=== PATIENT | female | born 1955 | race Caucasian/White ===

== ENCOUNTER 2017-10-27 11:06 | Emergency (ER) | payer BC ==
[2017-10-27 11:18] VITALS: BP 156/73; PULSE 77; RESP 18; TEMP 96.7
--- NOTE | 2017-10-27 12:25 | ED ---
General Adult HPI - General Chief complaint: Needlestick/Exposure Stated complaint: Exposure to bug spray Time Seen by Provider: 10/27/17 11:40 Source: patient, RN notes reviewed Mode of arrival: ambulatory Limitations: no limitations - History of Present Illness Initial comments: This is a 61-year-old female who states she was using some and fall on her under the call her house when she accidentally sprayed on her self going up her arm and to her face. She complained of a little bit of blurry vision she denies any cough rhinorrhea blindness difficulty swallowing chest pain or other complaints at this time. She presents with no other complaints at this time - Related Data Home Medications Medication Instructions Recorded Confirmed Aspirin EC [Ecotrin Low Dose] 81 mg PO HS 10/27/17 10/27/17 Lisinopril [Prinivil] 5 mg PO HS 10/27/17 10/27/17 Previous Rx's Medication Instructions Recorded Ketorolac 0.5% Ophth Soln [Acular 1 drops BOTH EYES QID #3 ml 10/27/17 0.5%] Allergies Allergy/AdvReac Type Severity Reaction Status Date / Time latex Allergy Rash/Hives Verified 10/27/17 12:11 Review of Systems ROS Statement: Those systems with pertinent positive or pertinent negative responses have been documented in the HPI. ROS Other: All systems not noted in ROS Statement are negative. Past Medical History Past Medical History: Hypertension History of Any Multi-Drug Resistant Organisms: None Reported Past Surgical History: Orthopedic Surgery, Tonsillectomy Additional Past Surgical History / Comment(s): right ankle surgery Past Psychological History: No Psychological Hx Reported Smoking Status: Never smoker Past Alcohol Use History: None Reported Past Drug Use History: None Reported General Exam - General Exam Comments Initial Comments: This is a well-developed well-nourished awake alert oriented 3 female Limitations: no limitations General appearance: alert, in no apparent distress Head exam: Present: atraumatic, normocephalic, normal inspection Eye exam: Present: normal appearance, PERRL, EOMI. Absent: scleral icterus, conjunctival injection, periorbital swelling ENT exam: Present: normal exam, mucous membranes moist Neck exam: Present: normal inspection. Absent: tenderness, meningismus, lymphadenopathy Respiratory exam: Present: normal lung sounds bilaterally. Absent: respiratory distress, wheezes, rales, rhonchi, stridor Cardiovascular Exam: Present: regular rate, normal rhythm, normal heart sounds. Absent: systolic murmur, diastolic murmur, rubs, gallop, clicks Extremities exam: Present: normal inspection, full ROM. Absent: tenderness, pedal edema, joint swelling, calf tenderness Back exam: Present: full ROM. Absent: tenderness Neurological exam: Present: alert, oriented X3, CN II-XII intact Psychiatric exam: Present: normal affect, normal mood Skin exam: Present: warm, dry, intact, normal color. Absent: rash Course Vital Signs 10/27/17 11:15 Temperature 96.7 F L Pulse Rate 77 Respiratory 18 Rate Blood Pressure 156/73 O2 Sat by Pulse 99 Oximetry Procedures - Procedures Initial comment: I did examine the eyes with the ophthalmoscope findings according to be clear no hyphema no evidence of abrasion seen with slit lamp. Medical Decision Making - Medical Decision Making I did discuss findings with the patient no further workup is indicated we did discuss washing in the eye lids with soap and water. We did discuss risks of pneumonitis inhalation of the fog or which does sound as if her was a brief exposure. Patient be placed on anti-inflammatory eyedrops for several days. She is a follow-up with her doctor and return when necessary Disposition Clinical Impression: Exposure to toxic chemical, Irritation of both eyes Disposition: HOME SELF-CARE Condition: Good Additional Instructions: Eyelid hygiene as discussed the soap and water to wash the eyelids and lashes. Ketorolac eyedrops as directed for 2-3 days. Return if any problems. Prescriptions: Ketorolac 0.5% Ophth Soln [Acular 0.5%] 1 drops BOTH EYES QID #3 ml Referrals: Carlos Berkowitz DO [Primary Care Provider] - 1-2 days
== END 2017-10-27 12:40 | disposition home or self-care (01) ==
LOC: EC 11:06
DX: H57.8 Other specified disorders of eye and adnexa (principal); Z77.098 Contact with and (suspected) exposure to other hazardous, chiefly nonmedicinal, chemicals; H53.8 Other visual disturbances; I10 Essential (primary) hypertension; Z79.82 Long term (current) use of aspirin; Z79.899 Other long term (current) drug therapy; Z91.040 Latex allergy status
CPT/HCPCS: 99282